=== PATIENT | female | born 1950 | race Caucasian/White ===

== ENCOUNTER → 2016-08-14 | Outpatient (CLI) | payer BC | LOC: GMAB 15:19 | PROVIDERS: ATTEND Family Medicine | DX: E83.52 Hypercalcemia (principal) ==

== ENCOUNTER → 2016-08-14 | Outpatient (CLI) | payer BC | LOC: GMAB 11:37 | PROVIDERS: ATTEND Family Medicine | DX: Z00.01 Encounter for general adult medical examination with abnormal findings (principal) ==

== ENCOUNTER → 2017-02-21 | Outpatient (CLI) | payer BC ==
--- NOTE | 2017-02-21 10:21 | CT ---
EXAM DESCRIPTION: Abdomen/Pelvis w/o Contrast CLINICAL HISTORY: LLQ PAIN COMPARISON: 06/13/2014 TECHNIQUE: CT of the abdomen and pelvis was performed without contrast. Multiple axial images and multiplanar reconstructions were generated. This exam was performed according to our departmental dose-optimization program, which includes automated exposure control, adjustment of the mA and/or kV according to patient size and/or use of iterative reconstruction technique. FINDINGS: Lung bases: The visualized lung bases are clear. The heart is mildly enlarged. Coronary artery atherosclerosis. Solid organs: Evaluation of the solid organs is limited due to lack of IV contrast. Hepatic cyst again demonstrated. There are 2 nonobstructing right renal calculi measuring 2 to 3 mm each. The spleen, pancreas, gallbladder, left kidney, and adrenal glands are unremarkable on this noncontrast exam. Gastrointestinal: The stomach and small intestine have an unremarkable noncontrast appearance. Rare scattered colonic diverticulosis without CT evidence for diverticulitis. What is felt to represent a tiny appendix is unremarkable, and there is no pericecal inflammation. No free fluid or free air. 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 Lymph nodes: No pathologically enlarged lymph nodes are present by CT size criteria. Musculoskeletal and soft tissues: No destructive osseous lesions are present. Urinary bladder and pelvic organs: The urinary bladder is normal. The uterus is surgically absent. IMPRESSION: 1. No acute abdominal or pelvic noncontrast CT findings. 2. Nonobstructing right nephrolithiasis. 3. Rare colonic diverticulosis without CT evidence for diverticulitis. 4. 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 5. Cardiomegaly. Electronically signed by: Jeffrey Gordillo MD 02/21/2017 10:20 AM [employer]
== END ==
LOC: CT 08:52
PROVIDERS: ATTEND Family Medicine
DX: R10.33 Periumbilical pain (principal); R10.32 Left lower quadrant pain; N20.0 Calculus of kidney; K57.30 Diverticulosis of large intestine without perforation or abscess without bleeding; I72.8 Aneurysm of other specified arteries; I51.7 Cardiomegaly

== ENCOUNTER → 2018-02-16 | Outpatient (CLI) | payer MEDICARE, OTHER | LOC: GMAE 11:04 | PROVIDERS: ATTEND Family Medicine | DX: I10 Essential (primary) hypertension (principal) ==

== ENCOUNTER → 2020-01-01 | Outpatient (CLI) | payer MEDICARE, OTHER ==
--- NOTE | 2020-01-02 17:16 | RAD ---
EXAM DESCRIPTION: Chest,2 Views: CR/ CLINICAL HISTORY: 69 years Female COVID positive COMPARISON: 2 view chest x-ray May 2015. TECHNIQUE: Two views. PA and Lateral. FINDINGS: Lungs: Moderate expansion. Senescent markings. No consolidation. No acute process. Pleural spaces: No effusion or pneumothorax bilaterally. Heart: Upper normal limits in size. Pulmonary Vascularity: Not increased. Mediastinum: Not widened. Aorta: Unremarkable. Bony Thorax/Spine: No acute bony thoracic abnormalities. Bilateral joint arthrosis. Bone density may be slightly decreased. IMPRESSION: Senescent markings in the chest with no acute process compared to the prior chest x-ray May 2015. Imaging features are atypical or uncommonly reported for COVID-19 pneumonia. Alternative diagnoses should be considered. Electronically signed by: Edward Kelley MD 01/02/2020 5:15 PM CDT
== END ==
LOC: LAB.O 14:37
PROVIDERS: ATTEND Nurse Practitioner Family
DX: Z20.828 Contact with and (suspected) exposure to other viral communicable diseases (principal); D64.9 Anemia, unspecified; R06.02 Shortness of breath; U07.1 COVID-19